=== PATIENT | male | born 1945 | race Two or more races ===

== ENCOUNTER 2020-05-08 21:58 | Emergency (ER) | payer MEDICARE ==
[~2020-05-08] VITALS: Ht 170.2 cm; Wt 74.8 kg
[2020-05-08] MEDS ORDERED: ACETAMINOPHEN 325MG TABLET PO STA (22:38)
[2020-05-08] MEDS ORDERED: ALBUTEROL 6.7GM HFA INHALER ORI ONE (23:00)
[2020-05-09 00:02] LABS: BASOPHILS % 0.2 % (0.0-2.0); HEMATOCRIT. 48.4 % (42.0-52.0); LYMPHOCYTES % 10.2 % (20.0-50.0); MEAN CORPUSCULAR HEMOGLOBIN 32.1 pg (28.0-32.0); MEAN CORPUSCULAR VOLUME 91.7 fL (80.0-94.0); MEAN PLATELET VOLUME 8.7 fl (7.4-10.4); MONOCYTES % 5.3 % (2.0-8.0); NEUTROPHILS % 84.3 % (40.0-76.0); RED BLOOD CELL COUNT 5.28 mill/uL (4.7-6.1)
[2020-05-09 00:20] LABS: CHLORIDE 101 mEq/L (98-107)
[2020-05-09 00:22] LABS: D-DIMER 0.4 mg/L FEU (<0.50); PROTHROMBIN TIME 10.2 sec (9.6-11.0)
[2020-05-09 00:34] LABS: PLATELET 182 x1000/uL (130-400)
[2020-05-09] MEDS ORDERED: AZITHROMYCIN 500 MG in DEXT 5% WATER 250 ML IV ONE (00:45)
[2020-05-09] MEDS ORDERED: CEFTRIAXONE 1 G PREMIX 50 ML IV ONE ×2 (00:45→02:12)
[2020-05-09] MEDS ORDERED: ACETAMINOPHEN 325MG TABLET PO PRN (07:45)
[2020-05-09] MEDS ORDERED: ONDANSETRON HCL 4MG/2ML INJ IV PRN (07:45)
[2020-05-09] MEDS ORDERED: DOCUSATE SODIUM 100MG CAPSULE PO PRN (07:45)
[2020-05-09] MEDS ORDERED: CLONIDINE 0.1MG TABLET PO PRN (07:45)
[2020-05-09] MEDS ORDERED: MAGNESIUM/ALUMINUM HYDROXIDE/SIMETHICONE 30ML UDC PO PRN (07:45)
[2020-05-09 08:00] VITALS: BP 123/77
[2020-05-09 09:13] LABS: CLARITY URINE TURBID (CLEAR); COLOR URINE DARK YELLOW (YELLOW); KETONES URINE TRACE (NEGATIVE); LEUKOCYTE ESTERASE URINE NEGATIVE (NEGATIVE); NITRITE URINE NEGATIVE (NEGATIVE); OCCULT BLOOD URINE NEGATIVE (NEGATIVE); PH URINE 5.5 (4.5-8.0); PROTEIN URINE 2+ (NEGATIVE); SPECIFIC GRAVITY URINE 1.029 (1.005-1.030)
[2020-05-09] MEDS ORDERED: ENOXAPARIN 40MG/0.4ML SYR SUBCUT SCH (10:00)
[2020-05-09] MEDS ORDERED: CEFTRIAXONE 1 G PREMIX 50 ML IV SCH (23:00)
[2020-05-10] MEDS ORDERED: AZITHROMYCIN 500 MG in DEXT 5% WATER 250 ML IV SCH (01:00)
== END 2020-05-09 10:14 | disposition short-term general hospital (02) ==
LOC: ER 21:58 → EDBEDREQ 05-09 00:44 → ER 05-09 10:14 → CANBEDREQ 05-09 13:25
DX: J18.9 Pneumonia, unspecified organism (principal); F17.200 Nicotine dependence, unspecified, uncomplicated; Z03.818 Encounter for observation for suspected exposure to other biological agents ruled out
CPT/HCPCS: 36415; 71045; 80053; 81003; 83605; 84145; 84484; 85025; 85379; 85610; 87040; 87086; 93005; 96365; 99285; C9803; J0456; J0696; J7060; U0003; 87635